=== PATIENT | female | born 1940 | race Caucasian/White ===

== ENCOUNTER 2017-06-24 09:21 | Emergency (ER) | payer MEDICARE ==
[~2017-06-24] VITALS: Ht 157.5 cm; Wt 57.0 kg
[~2017-06-24 09:21] MED LIST: ALLERGY PILL; AMLO5TAB2 PO; BETA1CAP PO; CRAN1CAP9 PO; ESTR1TAB15 PO; FLUT9.9S NAS; IMITREX; IPRATROPIUM NAS; LEVO100T5 PO; LEVO750T6 PO; LOSA50TA6 PO; METH750T87 PO; MIRALAX; MODA100T22 PO; NEBI2.5T2 PO; PANT40TA5 PO; RANI150T4 PO; RESTORE PO; SERT25TA3 PO; [UNRECOGNIZED DRUG - OTHER]; [UNRECOGNIZED DRUG - OTHER]; [UNRECOGNIZED DRUG - OTHER] PO; [UNRECOGNIZED DRUG - OTHER] PO; [UNRECOGNIZED DRUG - OTHER] PO; [UNRECOGNIZED DRUG - SUPPLY] PO; [UNRECOGNIZED DRUG - SUPPLY] PO
[2017-06-24 09:22] VITALS: BP 149/80
[2017-06-24] MEDS ORDERED: SODIUM CHLORIDE 0.9% 1,000ML IVBOLUS ONE (10:00)
[2017-06-24] MEDS ORDERED: KETOROLAC 30 MG/1 ML IVPush ONE (10:00)
[2017-06-24] MEDS ORDERED: SODIUM CHLORIDE FLUSH 10ML SYR IVF ONE (10:00)
[2017-06-24] MEDS ORDERED: DIPHENHYDRAMINE 50 MG/ML, 1ML IVPush ONE (10:00)
[2017-06-24] MEDS ORDERED: METOCLOPRAMIDE 5 MG/ML, 2ML IVPush ONE (10:00)
[2017-06-24 10:01] LABS: HEMATOCRIT 42.7 % (34.6-47.8); HEMOGLOBIN 14.2 g/dL (11.7-16.4); WHITE BLOOD COUNT 6.8 x10^3/uL (3.4-10)
[2017-06-24] MEDS ORDERED: KETOROLAC 30 MG/1 ML ONE (10:05)
[2017-06-24] MEDS ORDERED: METOCLOPRAMIDE 5 MG/ML, 2ML ONE (10:05)
[2017-06-24] MEDS ORDERED: DIPHENHYDRAMINE 50 MG/ML, 1ML ONE (10:05)
[2017-06-24 10:13] LABS: ASPARTATE AMINO TRANSFERASE 15 U/L (15-37); BLOOD UREA NITROGEN 12 mg/dL (7-18)
== END 2017-06-24 11:09 | disposition home or self-care (01) ==
LOC: ED 10:20
DX: G43.911 Migraine, unspecified, intractable, with status migrainosus (principal); R11.2 Nausea with vomiting, unspecified; R39.15 Urgency of urination; I10 Essential (primary) hypertension; Z90.49 Acquired absence of other specified parts of digestive tract; Z87.891 Personal history of nicotine dependence
CPT/HCPCS: 36415; 80053; 81001; 83690; 85025; 87086; 96374; 96375; 99284; J1200; J1885; J2765; J7030

== ENCOUNTER 2017-08-14 11:42 | Emergency (ER) | payer MEDICARE ==
[~2017-08-14] VITALS: Ht 157.5 cm; Wt 60.2 kg
[2017-08-14 11:48] VITALS: BP 176/85
[2017-08-14] MEDS ORDERED: BACITRACIN ZINC OINT 500U/GM, 0.9 GM ONE (13:00)
== END 2017-08-14 13:13 ==
LOC: ED 13:00
DX: S01.01XA Laceration without foreign body of scalp, initial encounter (principal); G89.11 Acute pain due to trauma; I10 Essential (primary) hypertension; W01.198A Fall on same level from slipping, tripping and stumbling with subsequent striking against other object, initial encounter; Y93.89 Activity, other specified; Y92.89 Other specified places as the place of occurrence of the external cause; Y99.8 Other external cause status
CPT/HCPCS: 12031; 99284

== ENCOUNTER 2020-03-23 13:44 | Observation (INO) | payer MEDICARE ==
[~2020-03-23] VITALS: Ht 157.5 cm; Wt 61.9 kg
[~2020-03-23 13:44] MED LIST changes: +AMLO-150 PO; -AMLO5TAB2 PO; +LOSA50TA14 PO; -LOSA50TA6 PO
--- NOTE | 2020-03-23 14:09 | NUR ---
PT WITH TWO EPISODES OF BRIGHT BLOODY STOOL THIS AFTERNOON, PT DENIES HEMATAEMESIS, N/V/D. PT DENIES ETOH ABUSE, PT WITH HX OF PANCREATITIS. PT DENIES SOB, CP. PT TO BP, CONT PULSE OX
--- NOTE | 2020-03-23 14:49 | NUR ---
PT AMBULATED TO BR WITH SLOW STEADY GAIT, DENIES DIZZINESS
[2020-03-23 15:19] LABS: BASOPHILS # (AUTO) 0.02 x10^3/uL (0-0.1); BASOPHILS % (AUTO) 0 % (0-1); EOSINOPHILS # (AUTO) 0.07 x10^3/uL (0-0.4); EOSINOPHILS % (AUTO) 1 % (1-7); LYMPHOCYTES # (AUTO) 0.99 x10^3/uL (1-3.4); LYMPHOCYTES % (AUTO) 14 % (22-44); MD NO; MEAN CORPUSCULAR HEMOGLOBIN 30.2 pg (27.0-34.8); MEAN CORPUSCULAR HGB CONC 32.4 g/dL (32.4-35.8); MEAN CORPUSCULAR VOLUME 93.2 fL (80-100); MEAN PLATELET VOLUME 8.1 fL (7.4-10.4); MONOCYTES # (AUTO) 0.44 x10^3/uL (0.2-0.8); MONOCYTES % (AUTO) 6 % (2-9); NEUTROPHILS # (AUTO) 5.68 x10^3/uL (1.8-6.8); NEUTROPHILS % (AUTO) 79 % (42-75); PLATELET COUNT 328 x10^3/uL (130-400); RED BLOOD COUNT 4.43 x10^6/uL (3.82-5.3); RED CELL DISTRIBUTION WIDTH 13.3 % (9.6-15.2)
[2020-03-23 15:28] LABS: INTERNATIONAL NORMALIZED RATIO 0.9 (0.93-1.1); PROTHROMBIN TIME 9.5 Seconds (9.6-11.5)
[2020-03-23 15:29] LABS: ALBUMIN 3.3 g/dL (3.4-5.0); ANION GAP 7 mmol/L (5-15); CALCIUM 8.9 mg/dL (8.5-10.1); CHLORIDE 104 mmol/L (98-107)
[2020-03-23 15:32] LABS: ALANINE AMINOTRANSFERASE 21 U/L (12-78); ALKALINE PHOSPHATASE 75 U/L (45-117); BILIRUBIN,TOTAL 0.3 mg/dL (0.2-1.0); CREATININE 1.12 mg/dL (0.55-1.02); TOTAL PROTEIN 7.7 g/dL (6.4-8.2)
--- NOTE | 2020-03-23 16:52 | NUR ---
ASSIST ERMD WITH BEDSIDE ANOSCOPE, MUCH BLOOD VISULIZED, ERMD SUGGESTING PT BE ADMITTED, PT CURRENLTY CONCERNED REGARDING BILL OF HOSPITAL STAY. PT REQUESTING XR OF ABD BEFORE MAKING CHOICE OF ADMISSION OR NOT
[2020-03-23] MEDS ORDERED: GOLYTELY 4,000ML ORAL.SOL PO ONE (18:30)
--- NOTE | 2020-03-23 18:47 | NUR ---
REPORT FROM MAYRA SIMONS.
--- NOTE | 2020-03-23 19:00 | NUR ---
ASSISTED PT TO BSC.
--- NOTE | 2020-03-23 19:09 | NUR ---
HAYDEE RAMON FROM PHARMACY.
--- NOTE | 2020-03-23 19:45 | NUR ---
Saul goldberg in ED - 03/23/20 at 1954 by MARIA DEL ROSARIO SHIVA PLACED PER MARY ANN. PT TOLERATED WELL.
--- NOTE | 2020-03-23 19:55 | NUR ---
REPORT GIVEN TO MICK SIMONS.
[2020-03-23] MEDS ORDERED: FLUTICASONE NASAL SPRAY 16GM NAS PRN (20:00)
[2020-03-23] MEDS ORDERED: ACETAMINOPHEN 325 MG TABLET PO PRN (20:00)
[2020-03-23 20:07] VITALS: BP 153/83
[2020-03-23] MEDS: SODIUM CHLORIDE 0.9% 1,000 ML IV SCH (20:57)
[2020-03-23] MEDS: morphine SULFATE 10 MG/ML, 1ML IVPush PRN (21:17)
[2020-03-23] MEDS: ONDANSETRON 2MG/ML, 2ML IVPush PRN (21:17)
[2020-03-23] MEDS ORDERED: NEBI5TAB3 PO (21:45)
[2020-03-24 00:29] VITALS: BP 147/83
[2020-03-24 05:04] LABS: BASOPHILS # (AUTO) 0.03 x10^3/uL (0-0.1); BASOPHILS % (AUTO) 0 % (0-1); EOSINOPHILS # (AUTO) 0.22 x10^3/uL (0-0.4); EOSINOPHILS % (AUTO) 4 % (1-7); LYMPHOCYTES # (AUTO) 1.63 x10^3/uL (1-3.4); LYMPHOCYTES % (AUTO) 28 % (22-44); MD NO; MEAN CORPUSCULAR HEMOGLOBIN 30.7 pg (27.0-34.8); MEAN CORPUSCULAR VOLUME 92.8 fL (80-100); MEAN PLATELET VOLUME 8.3 fL (7.4-10.4); MONOCYTES % (AUTO) 7 % (2-9); NEUTROPHILS # (AUTO) 3.65 x10^3/uL (1.8-6.8); NEUTROPHILS % (AUTO) 62 % (42-75); PLATELET COUNT 319 x10^3/uL (130-400); RED BLOOD COUNT 4.67 x10^6/uL (3.82-5.3); RED CELL DISTRIBUTION WIDTH 13.3 % (9.6-15.2)
[2020-03-24 05:12] LABS: ANION GAP 11 mmol/L (5-15); CALCIUM 8.8 mg/dL (8.5-10.1); CHLORIDE 104 mmol/L (98-107); CREATININE 0.86 mg/dL (0.55-1.02)
[2020-03-24 08:30] VITALS: BP 151/83
[2020-03-24] MEDS: ESTRADIOL 1 MG TABLET PO SCH (08:33)
[2020-03-24] MEDS: SERTRALINE 50MG TABLET PO SCH (08:34)
[2020-03-24] MEDS: MODAFINIL 100 MG TABLET PO SCH (08:34)
[2020-03-24] MEDS: FAMOTIDINE 10 MG TAB PO SCH (08:34)
[2020-03-24] MEDS: LEVOTHYROXINE 100 MCG TABLET PO SCH (08:34)
[2020-03-24] MEDS: AMLODIPINE 5 MG TABLET PO SCH (08:34)
[2020-03-24] MEDS: LOSARTAN 25MG TABLET PO SCH (08:34)
[2020-03-24] MEDS: PANTOPRAZOLE 40MG TABLET PO SCH (08:34)
[2020-03-24] MEDS ORDERED: NEBIVOLOL HCL PO SCH ×2 (09:00)
[2020-03-24] MEDS: NEBIVOLOL HCL 5 MG TABLET PO SCH (09:00)
[2020-03-24] MEDS: ONDANSETRON 2MG/ML, 2ML IVPush PRN (10:57)
[2020-03-24] MEDS: morphine SULFATE 10 MG/ML, 1ML IVPush PRN (10:57)
[2020-03-24] MEDS: SODIUM CHLORIDE 0.9% 1,000 ML IV SCH (11:13)
[2020-03-24] MEDS ORDERED: CHLORHEXIDINE 15 ML UDC ONE (14:19)
[2020-03-24] MEDS ORDERED: FENTANYL PF 100 MCG/2ML ONE (14:19)
[2020-03-24] MEDS ORDERED: MIDAZOLAM 1 MG/ML, 2ML ONE (14:19)
[2020-03-24] MEDS ORDERED: LABETALOL 5MG/ML, 20ML IV PRN (14:30)
[2020-03-24] MEDS ORDERED: PROMETHAZINE 25 MG/ML, 1ML IVPush PRN (14:30)
[2020-03-24] MEDS ORDERED: ONDANSETRON 2MG/ML, 2ML IVPush PRN (14:30)
[2020-03-24] MEDS ORDERED: FENTANYL PF 100 MCG/2ML IV PRN (14:30)
[2020-03-24] MEDS ORDERED: hydrALAzine 20 MG/ML, 1ML IV PRN (14:30)
[2020-03-24] MEDS ORDERED: HYDROcodone/APAP 7.5-325MG/15ML UDC PO PRN (14:30)
[2020-03-24 15:30] VITALS: BP 134/83
[2020-03-24 19:26] VITALS: BP 127/79
[2020-03-25 00:37] VITALS: BP 136/82
[2020-03-25] MEDS: SODIUM CHLORIDE 0.9% 1,000 ML IV SCH (04:53)
[2020-03-25 06:25] VITALS: BP 162/90
[2020-03-25] MEDS: ESTRADIOL 1 MG TABLET PO SCH (08:20)
[2020-03-25] MEDS: MODAFINIL 100 MG TABLET PO SCH (08:20)
[2020-03-25] MEDS: AMLODIPINE 5 MG TABLET PO SCH (08:20)
[2020-03-25] MEDS: LEVOTHYROXINE 100 MCG TABLET PO SCH (08:20)
[2020-03-25] MEDS: FAMOTIDINE 10 MG TAB PO SCH (08:20)
[2020-03-25] MEDS: PANTOPRAZOLE 40MG TABLET PO SCH (08:20)
[2020-03-25] MEDS: NEBIVOLOL HCL 5 MG TABLET PO SCH (08:20)
[2020-03-25] MEDS: LOSARTAN 25MG TABLET PO SCH (08:20)
[2020-03-25] MEDS: SERTRALINE 50MG TABLET PO SCH (08:20)
[2020-03-25] MEDS ORDERED: LACTULOSE 20 GM/30 ML UDC PO SCH (09:00)
== END 2020-03-25 14:40 | disposition home or self-care (01) ==
LOC: ED 14:10 → EDIP 18:03 → INTOOBSV 18:03 → 3N 20:03 → DCLOUNGE 03-25 14:29
PROVIDERS: ADMIT Family Medicine; ATTEND Family Medicine
DX: K57.90 Diverticulosis of intestine, part unspecified, without perforation or abscess without bleeding (principal); K64.8 Other hemorrhoids; K59.09 Other constipation; G43.909 Migraine, unspecified, not intractable, without status migrainosus; F32.9 Major depressive disorder, single episode, unspecified; I10 Essential (primary) hypertension; E78.5 Hyperlipidemia, unspecified; E03.9 Hypothyroidism, unspecified; K21.9 Gastro-esophageal reflux disease without esophagitis; Z87.891 Personal history of nicotine dependence; Z79.899 Other long term (current) drug therapy; Z79.51 Long term (current) use of inhaled steroids; Z86.19 Personal history of other infectious and parasitic diseases
CPT/HCPCS: 36415; 45378; 74021; 80048; 80053; 85025; 85610; 85730; 86850; 86900; 93005; 96374; 96375; 96376; 99285; G0378; J2250; J2270; J2405; J3010; J7030

== ENCOUNTER 2020-04-06 10:47 | Observation (INO) | payer MEDICARE ==
[~2020-04-06] VITALS: Ht 157.5 cm; Wt 60.0 kg
[~2020-04-06 10:47] MED LIST changes: +NEBI5TAB3 PO
[2020-04-06] MEDS ORDERED: PANTOPRAZOLE 80 MG in SODIUM CHLORIDE 0.9% 50 ML IVPB ONE (11:45)
[2020-04-06] MEDS ORDERED: PANTOPRAZOLE 80 MG in SODIUM CHLORIDE 0.9% 100 ML IV SCH (12:00)
[2020-04-06 12:21] LABS: BASOPHILS # (AUTO) 0.02 x10^3/uL (0-0.1); BASOPHILS % (AUTO) 0 % (0-1); EOSINOPHILS # (AUTO) 0.05 x10^3/uL (0-0.4); EOSINOPHILS % (AUTO) 1 % (1-7); LYMPHOCYTES # (AUTO) 0.83 x10^3/uL (1-3.4); LYMPHOCYTES % (AUTO) 12 % (22-44); MD NO; MEAN CORPUSCULAR HEMOGLOBIN 30.9 pg (27.0-34.8); MEAN CORPUSCULAR HGB CONC 33.1 g/dL (32.4-35.8); MEAN CORPUSCULAR VOLUME 93.3 fL (80-100); MEAN PLATELET VOLUME 7.9 fL (7.4-10.4); MONOCYTES # (AUTO) 0.34 x10^3/uL (0.2-0.8); MONOCYTES % (AUTO) 5 % (2-9); NEUTROPHILS # (AUTO) 5.53 x10^3/uL (1.8-6.8); NEUTROPHILS % (AUTO) 82 % (42-75); PLATELET COUNT 370 x10^3/uL (130-400); RED BLOOD COUNT 4.46 x10^6/uL (3.82-5.3); RED CELL DISTRIBUTION WIDTH 13.5 % (9.6-15.2)
--- NOTE | 2020-04-06 12:22 | NUR ---
THIS IS A 80 YO F W/ C/O LWR ABD PAIN, EPISGASTRIC PAIN, NAUSEA AND 4 BLACK TARRY STOOLS SINCE THIS MORNING. PT HAD COLONOSCOPY ON 03/24 WHICH SHE REPORTS SHOWED BLEEDING DIVERTICULA. PT VSS, RESP EVEN AND UNLABORED, NADN. PIV STARTED, LABS DRAWN AND PT MEDICATED PER EMAR. PT RESTING ON GURNEY W/ CALL LIGHT IN REACH AND FAMILY AT BEDSIDE, SIDE RAILS UPX2. AWAITING RESULTS.
[2020-04-06 12:30] LABS: ALBUMIN 3.5 g/dL (3.4-5.0); ANION GAP 7 mmol/L (5-15); CALCIUM 9.2 mg/dL (8.5-10.1); CHLORIDE 99 mmol/L (98-107)
[2020-04-06] MEDS ORDERED: MORPHINE SULFATE 4 MG/ML, 1ML IVPush PRN ×2 (12:30→14:00)
[2020-04-06 12:31] LABS: INTERNATIONAL NORMALIZED RATIO 0.94 (0.93-1.1)
[2020-04-06 12:33] LABS: ALANINE AMINOTRANSFERASE 23 U/L (12-78); ALKALINE PHOSPHATASE 72 U/L (45-117); BILIRUBIN,TOTAL 0.4 mg/dL (0.2-1.0); CREATININE 1.08 mg/dL (0.55-1.02); TOTAL PROTEIN 7.6 g/dL (6.4-8.2)
[2020-04-06] MEDS ORDERED: MORPHINE SULFATE 4 MG/ML, 1ML ONE (12:36)
--- NOTE | 2020-04-06 12:46 | NUR ---
PT MEDICATED PER EMAR FOR PAIN 03/30. PLACED ON 2L NC FOR SAFETY. CONNECTED TO MONITORING, VSS, CALL LIGHT IN REACH, SIDE RAILS UPX2. FAMILY AT BEDSIDE. AWAITING CT.
--- NOTE | 2020-04-06 13:04 | NUR ---
PT IN CT.
--- NOTE | 2020-04-06 14:08 | NUR ---
TASK RN: REPORT TO RONAK ALCALA ON MEDICAL. PT PREPARED FOR TRANSPORT.
[2020-04-06] MEDS ORDERED: ACETAMINOPHEN 325 MG TABLET PO PRN (14:30)
[2020-04-06] MEDS ORDERED: DOCUSATE 100 MG CAPSULE PO PRN (14:30)
[2020-04-06] MEDS ORDERED: ONDANSETRON 2MG/ML, 2ML IVPush PRN (14:30)
[2020-04-06] MEDS ORDERED: morphine SULFATE 10 MG/ML, 1ML IVPush PRN (14:30)
[2020-04-06] MEDS ORDERED: ONDANSETRON ODT 4 MG PO PRN (14:30)
[2020-04-06 14:33] VITALS: BP 125/75
[2020-04-06] MEDS ORDERED: FLUTICASONE NASAL SPRAY 16GM NAS PRN (15:00)
[2020-04-06] MEDS: PANTOPRAZOLE 80 MG in SODIUM CHLORIDE 0.9% 100 ML IV SCH ×2 (15:00→19:51)
[2020-04-06] MEDS ORDERED: SODIUM CHLORIDE 0.9% 1,000 ML IV SCH (16:30)
[2020-04-06 18:59] VITALS: BP 123/74
[2020-04-06] MEDS ORDERED: PROMETHAZINE 25 MG/ML, 1ML IM PRN (20:30)
[2020-04-07 02:25] VITALS: BP 127/77
[2020-04-07 06:04] LABS: BASOPHILS # (AUTO) 0.01 x10^3/uL (0-0.1); BASOPHILS % (AUTO) 0 % (0-1); EOSINOPHILS # (AUTO) 0.12 x10^3/uL (0-0.4); EOSINOPHILS % (AUTO) 2 % (1-7); LYMPHOCYTES # (AUTO) 0.84 x10^3/uL (1-3.4); LYMPHOCYTES % (AUTO) 12 % (22-44); MD NO; MEAN CORPUSCULAR HEMOGLOBIN 30.3 pg (27.0-34.8); MEAN CORPUSCULAR HGB CONC 32.8 g/dL (32.4-35.8); MEAN CORPUSCULAR VOLUME 92.1 fL (80-100); MEAN PLATELET VOLUME 7.6 fL (7.4-10.4); MONOCYTES # (AUTO) 0.23 x10^3/uL (0.2-0.8); MONOCYTES % (AUTO) 3 % (2-9); NEUTROPHILS # (AUTO) 5.96 x10^3/uL (1.8-6.8); NEUTROPHILS % (AUTO) 83 % (42-75); PLATELET COUNT 326 x10^3/uL (130-400); RED CELL DISTRIBUTION WIDTH 13.6 % (9.6-15.2)
[2020-04-07 06:16] LABS: ANION GAP 7 mmol/L (5-15); CALCIUM 8.4 mg/dL (8.5-10.1); CHLORIDE 106 mmol/L (98-107); CREATININE 1.13 mg/dL (0.55-1.02)
[2020-04-07] MEDS: PANTOPRAZOLE 80 MG in SODIUM CHLORIDE 0.9% 100 ML IV SCH (06:17)
[2020-04-07 06:55] VITALS: BP 134/80
[2020-04-07] MEDS ORDERED: LEVOTHYROXINE 100 MCG TABLET PO SCH (07:30)
[2020-04-07] MEDS ORDERED: SERTRALINE 50MG TABLET PO SCH (09:00)
[2020-04-07] MEDS ORDERED: MODAFINIL 100 MG TABLET PO SCH (09:00)
[2020-04-07] MEDS ORDERED: AMLODIPINE 5 MG TABLET PO SCH (09:00)
[2020-04-07] MEDS ORDERED: ESTRADIOL 1 MG TABLET PO SCH (09:00)
[2020-04-07] MEDS ORDERED: NEBIVOLOL HCL 5 MG TABLET PO SCH (09:00)
[2020-04-07] MEDS ORDERED: LOSARTAN 50MG TABLET PO SCH (09:00)
[2020-04-07 10:45] VITALS: BP 145/79
[2020-04-07] MEDS ORDERED: CHLORHEXIDINE 15 ML UDC ONE (12:49)
[2020-04-07] MEDS ORDERED: CHLORHEXIDINE 15 ML UDC MM ONE (13:00)
[2020-04-07] MEDS ORDERED: PROPOFOL 10 MG/ML, 20ML ONE (13:28)
[2020-04-07] MEDS ORDERED: ACETAMINOPHEN 325 MG TABLET PO PRN (14:00)
[2020-04-07] MEDS ORDERED: ONDANSETRON 2MG/ML, 2ML IVPush PRN (14:00)
[2020-04-07] MEDS ORDERED: PROMETHAZINE 25 MG/ML, 1ML IVPush PRN (14:00)
[2020-04-07] MEDS ORDERED: SODIUM CHLORIDE 0.9% 1,000 ML IV SCH (14:00)
[2020-04-07] MEDS ORDERED: OXYcodone 5 MG/5 ML ORAL.SOL UDC PO PRN (14:00)
[2020-04-07] MEDS ORDERED: PANT40TA5 PO (15:49)
== END 2020-04-07 17:00 | disposition home or self-care (01) ==
LOC: ED 12:18 → EDIP 13:54 → INTOOBSV 13:54 → 3N 14:25 → DCLOUNGE 04-07 16:51
PROVIDERS: ADMIT Family Medicine; ATTEND Family Medicine
DX: Z03.818 Encounter for observation for suspected exposure to other biological agents ruled out (principal); K92.2 Gastrointestinal hemorrhage, unspecified; K44.9 Diaphragmatic hernia without obstruction or gangrene; K59.09 Other constipation; K52.9 Noninfective gastroenteritis and colitis, unspecified; G43.909 Migraine, unspecified, not intractable, without status migrainosus; I10 Essential (primary) hypertension; E78.5 Hyperlipidemia, unspecified; E03.9 Hypothyroidism, unspecified; F32.9 Major depressive disorder, single episode, unspecified; K21.9 Gastro-esophageal reflux disease without esophagitis; K92.1 Melena; Z86.19 Personal history of other infectious and parasitic diseases; Z79.899 Other long term (current) drug therapy; Z87.891 Personal history of nicotine dependence; Z90.710 Acquired absence of both cervix and uterus
CPT/HCPCS: 36415; 43239; 74177; 80048; 80053; 83690; 85014; 85018; 85025; 85610; 85730; 86850; 86900; 87635; 88305; 88342; 96365; 96366; 96372; 96375; 96376; 99285; C9113; G0378; J2270; J2405; J2550; J2704; J7030; 96374

== ENCOUNTER 2020-04-26 08:24 | Emergency (ER) | payer MEDICARE ==
[~2020-04-26] VITALS: Ht 157.5 cm; Wt 56.8 kg
--- NOTE | 2020-04-26 09:38 | NUR ---
pt to room 7 from [facility], via wheelchair
--- NOTE | 2020-04-26 09:48 | NUR ---
pt presents to ED accompanied by , complaint of intermittent bleeding per rectum x 5 days, at times stool is black, at times bright red, on average one clot per rectum per day. pt is a&o, resps even and unlabored, no bleeding at this time. pt undressed and placed in gown, warm blanket provided. pt attached to bp and spo2 monitors, call light in reach. KENTON Murcia at bedside for exam.
[2020-04-26] MEDS ORDERED: SODIUM CHLORIDE 0.9% 1,000ML IVBOLUS ONE (10:00)
[2020-04-26] MEDS ORDERED: SODIUM CHLORIDE FLUSH 10ML SYR IVF ONE (10:00)
[2020-04-26 10:24] LABS: BASOPHILS # (AUTO) 0.03 x10^3/uL (0-0.1); BASOPHILS % (AUTO) 1 % (0-1); EOSINOPHILS % (AUTO) 2 % (1-7); LYMPHOCYTES # (AUTO) 1.04 x10^3/uL (1-3.4); LYMPHOCYTES % (AUTO) 16 % (22-44); MD NO; MEAN CORPUSCULAR HEMOGLOBIN 29.3 pg (27.0-34.8); MEAN CORPUSCULAR HGB CONC 31.6 g/dL (32.4-35.8); MEAN CORPUSCULAR VOLUME 92.8 fL (80-100); MEAN PLATELET VOLUME 7.8 fL (7.4-10.4); MONOCYTES # (AUTO) 0.44 x10^3/uL (0.2-0.8); MONOCYTES % (AUTO) 7 % (2-9); NEUTROPHILS # (AUTO) 4.82 x10^3/uL (1.8-6.8); NEUTROPHILS % (AUTO) 75 % (42-75); PLATELET COUNT 291 x10^3/uL (130-400); RED BLOOD COUNT 4.67 x10^6/uL (3.82-5.3); RED CELL DISTRIBUTION WIDTH 13.4 % (9.6-15.2)
[2020-04-26] MEDS ORDERED: HYDROmorphone 1 MG/ML, 1ML INJ IVPush PRN (10:30)
[2020-04-26] MEDS ORDERED: HYDROmorphone 1 MG/ML, 1ML INJ ONE (10:32)
[2020-04-26] MEDS ORDERED: ONDANSETRON 2MG/ML, 2ML ONE (10:32)
[2020-04-26 10:33] LABS: INTERNATIONAL NORMALIZED RATIO 0.94 (0.93-1.1)
[2020-04-26 10:36] LABS: ALANINE AMINOTRANSFERASE 19 U/L (12-78); ALBUMIN 3.5 g/dL (3.4-5.0); ANION GAP 7 mmol/L (5-15); CALCIUM 8.8 mg/dL (8.5-10.1); CHLORIDE 102 mmol/L (98-107); CREATININE 1.12 mg/dL (0.55-1.02)
--- NOTE | 2020-04-26 10:43 | NUR ---
piv placed pt medicated per emar for 6/10 generalized abd pain and nausea. awaiting ct scan at this time.
--- NOTE | 2020-04-26 10:55 | NUR ---
PT REPORT FROM RONAK RIZO. PT CARE TO BE ASSUMED. PT TO CT PER LALITO
[2020-04-26 11:00] LABS: MICROSCOPIC INDICATED
[2020-04-26] MEDS ORDERED: ONDANSETRON 2MG/ML, 2ML IVPush ONE (11:00)
--- NOTE | 2020-04-26 11:00 | NUR ---
pt to CT, nadn. spo2 mainatined >90% on room air prior to transport, report given to RONAK Mota.
[2020-04-26 11:01] LABS: ALKALINE PHOSPHATASE 67 U/L (45-117); BILIRUBIN,TOTAL 0.4 mg/dL (0.2-1.0); TOTAL PROTEIN 7.6 g/dL (6.4-8.2)
[2020-04-26] MEDS ORDERED: OMNIPAQUE 350 MG/ML, 100ML BOTTLE ONE (11:16)
--- NOTE | 2020-04-26 12:01 | NUR ---
HOSPITAL PHYSICIAN AT BS.
--- NOTE | 2020-04-26 12:10 | NUR ---
PER DR MORALES, PT UNDECIDED ABOUT STAYING FOR HEMORRHOID PROCEDURE; SHE AND SPOUSE WILL DISCUSS IT.
--- NOTE | 2020-04-26 12:18 | NUR ---
AMBULATORY TO & FROM [facility] BR W/OUT INCIDENT, GAIT SLOW & STEADY, ACCOMPANIED BY SPOUSE.
[2020-04-26 13:48] VITALS: BP 164/71
--- NOTE | 2020-04-26 14:23 | NUR ---
LATE ENTRY: 1055 NS INFUSING. SPOUSE W/ PATIENT
== END 2020-04-26 13:50 | disposition home or self-care (01) ==
LOC: ED 09:45
DX: K92.2 Gastrointestinal hemorrhage, unspecified (principal); K92.1 Melena; R10.30 Lower abdominal pain, unspecified; I11.9 Hypertensive heart disease without heart failure; Z87.891 Personal history of nicotine dependence; Z90.49 Acquired absence of other specified parts of digestive tract
CPT/HCPCS: 36415; 74177; 80053; 81001; 83605; 83690; 85025; 85610; 87086; 93005; 96374; 96375; 99285; J1170; J2405; Q9967

== ENCOUNTER 2020-07-11 14:45 | Emergency (ER) | payer MEDICARE ==
[~2020-07-11] VITALS: Ht 157.5 cm; Wt 60.0 kg
[~2020-07-11 14:45] MED LIST changes: -PANT40TA5 PO; +PANT40TA6 PO
--- NOTE | 2020-07-11 15:22 | NUR ---
SPECIMEN PREPARATION ASSISTANT: PT TO ROOM AT THIS TIME VIA WHEELCHAIR. NU
[2020-07-11 15:27] LABS: BASOPHILS # (AUTO) 0.02 x10^3/uL (0-0.1); BASOPHILS % (AUTO) 0 % (0-1); EOSINOPHILS # (AUTO) 0.02 x10^3/uL (0-0.4); EOSINOPHILS % (AUTO) 0 % (1-7); LYMPHOCYTES # (AUTO) 0.75 x10^3/uL (1-3.4); LYMPHOCYTES % (AUTO) 12 % (22-44); MD NO; MEAN CORPUSCULAR HEMOGLOBIN 29.6 pg (27.0-34.8); MEAN CORPUSCULAR HGB CONC 32.6 g/dL (32.4-35.8); MEAN CORPUSCULAR VOLUME 90.7 fL (80-100); MEAN PLATELET VOLUME 8.2 fL (7.4-10.4); MONOCYTES % (AUTO) 3 % (2-9); NEUTROPHILS # (AUTO) 5.05 x10^3/uL (1.8-6.8); NEUTROPHILS % (AUTO) 84 % (42-75); PLATELET COUNT 300 x10^3/uL (130-400); RED BLOOD COUNT 5.09 x10^6/uL (3.82-5.3); RED CELL DISTRIBUTION WIDTH 14.7 % (9.6-15.2)
--- NOTE | 2020-07-11 15:30 | NUR ---
ASSUMED CARE OF PT AT THIS TIME FROM LOBBY VIA WHEEELCHAIR. ASSISTED TO KELSEY. ALISSA MENDOSA AT BEDSIDE FOR EVALUATION. 80 Y/O F PRESENTS STATING "I WAS ON STEP STOOL, FELL STEPPING OFF ONTO MY BACK, IT'S BEEN SORE FOR A WEEK BUT PAIN GETTING WORSE WHEN I STAND AND SIT." DENIES HITTING HEAD OR ANY LOC WITH FALL. DENIES MIDLINE NECK OR BACK PAIN. REPORTS PAIN 7/10 LOW BACK. CONT PULSE OX, BP MONITORS APPLIED. VSS. A&OX4. CALL LIGHT IN REACH. FALL PRECAUTIONS IN PLACE. SPOUSE AT BEDSIDE. LAB AT BEDSIDE.
[2020-07-11 15:42] LABS: ALBUMIN 3.6 g/dL (3.4-5.0); ANION GAP 9 mmol/L (5-15); CALCIUM 9.1 mg/dL (8.5-10.1); CHLORIDE 105 mmol/L (98-107)
[2020-07-11 15:46] LABS: ALANINE AMINOTRANSFERASE 24 U/L (12-78); ALKALINE PHOSPHATASE 75 U/L (45-117); BILIRUBIN,TOTAL 0.3 mg/dL (0.2-1.0); CREATININE 1.02 mg/dL (0.55-1.02); TOTAL PROTEIN 7.7 g/dL (6.4-8.2)
[2020-07-11] MEDS ORDERED: MORPHINE SULFATE 4 MG/ML, 1ML ONE ×2 (15:46→17:38)
[2020-07-11] MEDS ORDERED: MAALOX/HYOSCYAMINE/LIDOCAINE 45 ML BTL ONE (15:46)
--- NOTE | 2020-07-11 15:57 | NUR ---
TYPE CUTTER AT BEDSIDE FOR EKG.
[2020-07-11] MEDS ORDERED: MAALOX/HYOSCYAMINE/LIDOCAINE 45 ML BTL PO ONE (16:00)
[2020-07-11] MEDS ORDERED: MORPHINE SULFATE 4 MG/ML, 1ML IVPush PRN ×2 (16:00→17:30)
--- NOTE | 2020-07-11 16:24 | NUR ---
PT ASSISTED TO BEDSIDE COMMODE FOR CLEAN CATCH UA, COLLECTED AND SENT TO LAB. IV PLACED, PT MEDICATED NOTED IN EMAR FOR 7/10 LOW BACK AND ABD PAIN. VSS. CALL LIGHT IN REACH. SPOUSE AT BEDSIE. FALL PRECAUTIONS IN PLACE
[2020-07-11] MEDS ORDERED: TRAM50TA2 PO (16:34)
[2020-07-11] MEDS ORDERED: THIA50TA4 PO (16:34)
[2020-07-11] MEDS ORDERED: ONDA4TAB7 PO (16:35)
[2020-07-11 16:53] LABS: MICROSCOPIC INDICATED
--- NOTE | 2020-07-11 17:00 | NUR ---
PT REPORTS PAIN "ABOUT THE SAME, MAYBE 5/10 IN BACK AND 7/10 ABD," REQUESTING ADDITIONAL PAIN MEDICATION. TO DISCUSS WITH DR. POSADA. CALL LIGHT IN REACH. VSS.
--- NOTE | 2020-07-11 17:26 | NUR ---
REPORT AND CARE TO BREAK RN JAZMIN AT THIS TIME
--- NOTE | 2020-07-11 17:47 | NUR ---
TASK RN: MEDICATED PER MAR ORDERED, ASSISTED TO BSC, VSS. FALL PRECAUTIONS IN PLACE. CALL LIGHT WITHIN REACH.
--- NOTE | 2020-07-11 18:28 | NUR ---
RECEIVED REPORT FROM JAZMIN SIMONS. PT REPORTS PAIN IMPROVED TO 2-3/10 "MORE COMFORTABLE." PT TO RAD AT THIS TIME. CALL LIGHT IN REACH. FALL PRECUATIONS IN PLACE
--- NOTE | 2020-07-11 19:10 | NUR ---
ALISSA MENDOSA AT BEDSIDE DISCUSSING TEST RESULTS AND DISCHARGE POC WITH PT AND SPOUSE
[2020-07-11 19:17] VITALS: BP 152/89
== END 2020-07-11 19:19 | disposition home or self-care (01) ==
LOC: ED 17:10
DX: R10.13 Epigastric pain (principal); G89.29 Other chronic pain; M54.5 Low back pain; R94.31 Abnormal electrocardiogram [ECG] [EKG]; I10 Essential (primary) hypertension; Z90.49 Acquired absence of other specified parts of digestive tract; Z87.891 Personal history of nicotine dependence
CPT/HCPCS: 36415; 74022; 80053; 81001; 83690; 85025; 87086; 93005; 96374; 96376; 99285; J2270

== ENCOUNTER → 2020-08-17 | Outpatient (CLI) | payer MEDICARE ==
[~2020-08-17] MED LIST changes: +ONDA4TAB7 PO; +THIA50TA4 PO; +TRAM50TA2 PO
== END | disposition home or self-care (01) ==
LOC: CFH 11:04
PROVIDERS: ATTEND Family Medicine
DX: M85.88 Other specified disorders of bone density and structure, other site (principal); Z78.0 Asymptomatic menopausal state
CPT/HCPCS: 77080